=== PATIENT | male | born 1960 | race Caucasian/White ===

== ENCOUNTER 2023-01-11 12:35 | Inpatient (IN) | payer MEDICAID ==
[~2023-01-11] VITALS: Ht 167.6 cm; Wt 41.0 kg
[2023-01-11] MEDS ORDERED: ONDANSETRON HCL 4MG/2ML INJ IV STA (13:02)
[2023-01-11] MEDS ORDERED: SODIUM CHLORIDE 0.9% 1,000 ML IV ONE ×2 (13:15)
[2023-01-11] MEDS ORDERED: CEFEPIME 1,000 MG in DEXTROSE 5% WATER 50 ML IV SCH (13:30)
[2023-01-11] MEDS ORDERED: CEFEPIME 1GM PREMIX 50 ML IV NR (13:45)
[2023-01-11] MEDS ORDERED: CEFEPIME 1,000 MG in DEXTROSE 5% WATER 50 ML IV NR (13:45)
[2023-01-11 15:30] LABS: HEMATOCRIT. 43.5 % (42.0-52.0); MEAN CORPUSCULAR HEMOGLOBIN 27.9 pg (28.0-32.0); MEAN CORPUSCULAR VOLUME 80.7 fL (80.0-94.0); MEAN PLATELET VOLUME 7.8 fl (7.4-10.4); PLATELET 284 x1000/uL (130-400); RED BLOOD CELL COUNT 5.39 mill/uL (4.7-6.1); RED CELL DISTRIBUTION WIDTH 15.3 % (11.6-14.6)
[2023-01-11 15:36] LABS: INR 1.1; PARTIAL THROMBOPLASTIN TIME 30.2 sec (23.4-31.0); PROTHROMBIN TIME 11.9 sec (9.6-11.0)
[2023-01-11 15:37] LABS: CHLORIDE 100 mEq/L (98-107)
[2023-01-11] MEDS ORDERED: KCL 20MEQ/100ML PREMIX 100 ML IV ONE (16:00)
[2023-01-11] MEDS ORDERED: MAGNESIUM 2 G PREMIX 50 ML IV ONE (16:00)
[2023-01-11] MEDS ORDERED: POTASSIUM CHLORIDE 20MEQ TABLET SR PO ONE (16:00)
[2023-01-11] MEDS ORDERED: VANCOMYCIN 1G PREMIX 200 ML IV SCH (16:00)
[2023-01-11 16:22] LABS: PHOSPHORUS 3.7 mg/dL (2.5-4.9)
[2023-01-11 16:34] LABS: PLATELET ESTIMATE NORMAL
[2023-01-11] MEDS ORDERED: IOHEXOL-350 100 ML BOTTLE ONE (22:10)
[2023-01-12] MEDS ORDERED: ACETAMINOPHEN 325MG TABLET PO PRN ×2 (02:15)
[2023-01-12] MEDS ORDERED: IPRATROPIUM/ALBUTEROL 0.5-3(2.5)MG/3ML NEB HHN PRN (02:15)
[2023-01-12] MEDS ORDERED: MAGNESIUM/ALUMINUM HYDROXIDE/SIMETHICONE 30ML UDC PO PRN (02:15)
[2023-01-12] MEDS ORDERED: DOCUSATE SODIUM 100MG CAPSULE PO PRN (02:15)
[2023-01-12] MEDS ORDERED: GUAIFENESIN 200MG/10ML SUGAR FREE UDC PO PRN (02:15)
[2023-01-12] MEDS ORDERED: CLONIDINE 0.1MG TABLET PO PRN (02:15)
[2023-01-12] MEDS ORDERED: HYDROCODONE/ACETAMINOPHEN 5/325MG TABLET PO PRN (02:15)
[2023-01-12] MEDS ORDERED: NALOXONE HCL 0.4MG/ML VIAL IV PRN (02:45)
[2023-01-12 02:50] VITALS: BP 124/74
[2023-01-12] MEDS: SODIUM CHLORIDE 0.9% 1,000 ML IV SCH ×2 (03:36→15:35)
[2023-01-12 04:00] VITALS: BP 121/79
[2023-01-12] MEDS ORDERED: ONDANSETRON HCL 4MG/2ML INJ IV PRN (04:45)
[2023-01-12 04:53] LABS: CLARITY URINE CLOUDY (CLEAR); COLOR URINE YELLOW (YELLOW); KETONES URINE TRACE (NEGATIVE); LEUKOCYTE ESTERASE URINE NEGATIVE (NEGATIVE); NITRITE URINE NEGATIVE (NEGATIVE); OCCULT BLOOD URINE TRACE (NEGATIVE); PH URINE 5.5 (4.5-8.0); PROTEIN URINE 1+ (NEGATIVE); SPECIFIC GRAVITY URINE 1.047 (1.005-1.030); UROBILINOGEN URINE 0.2 E.U./dL (0.2-1.0)
[2023-01-12 05:12] LABS: *AMPHETAMINES SCREEN URINE NEGATIVE (NEGATIVE); *BARBITURATES SCREEN URINE NEGATIVE (NEGATIVE); *BENZODIAZEPINES SCREEN URINE NEGATIVE (NEGATIVE); *COCAINE SCREEN URINE NEGATIVE (NEGATIVE); CANNABINOID URINE SCREEN NEGATIVE (NEGATIVE); METHADONE URINE SCREEN NEGATIVE (NEGATIVE); OPIATES URINE SCREEN PRESUMTIVE POSITIVE (NEGATIVE); PHENCYCLIDINE URINE SCREEN NEGATIVE (NEGATIVE)
[2023-01-12] MEDS ORDERED: PIPERACILLIN/TAZOBACTAM 3.375 G in DEXTROSE 5% WATER 50 ML IV SCH (06:00)
[2023-01-12 07:58] LABS: HEPATITIS B SURFACE ANTIGEN NEGATIVE
[2023-01-12 08:00] VITALS: BP 126/77
[2023-01-12] MEDS: ENOXAPARIN 40MG/0.4ML SYR SUBCUT SCH (09:19)
[2023-01-12] MEDS ORDERED: POTASSIUM CHLORIDE 20MEQ/PACKET PO SCH (10:00)
[2023-01-12 11:04] LABS: HEMATOCRIT 41.6 % (42.0-52.0); HEMOGLOBIN 13.8 g/dL (14.0-18.0); MEAN CORPUSCULAR VOLUME 81.6 fL (80.0-94.0); PLATELET 225 x1000/uL (130-400); RED BLOOD CELL COUNT 5.09 mill/uL (4.7-6.1); RED CELL DISTRIBUTION WIDTH 15.2 % (11.6-14.6)
[2023-01-12 11:24] LABS: CHLORIDE 110 mEq/L (98-107)
[2023-01-12 11:32] LABS: PHOSPHORUS 2.5 mg/dL (2.5-4.9); TOTAL IRON BINDING CAPACITY 231 ug/dL (250-450)
[2023-01-12 12:00] VITALS: BP 115/71
[2023-01-12 12:14] LABS: FOLIC ACID (FOLATE) SERUM 17.5 ng/mL (>5.38)
[2023-01-12] MEDS ORDERED: POTASSIUM CHLORIDE 20MEQ TABLET SR PO NR (13:00)
[2023-01-12] MEDS ORDERED: POTASSIUM CHLORIDE INJ 40 MEQ in DEXT 5% WATER 250 ML IV NR (14:00)
[2023-01-12] MEDS ORDERED: VANCOMYCIN 750MG PREMIX 150 ML IV SCH ×2 (15:00)
[2023-01-12 16:00] VITALS: BP 120/75
[2023-01-12] MEDS: VANCOMYCIN 1G PREMIX 200 ML IV SCH (17:07)
[2023-01-12] MEDS: PIPERACILLIN/TAZOBACTAM 3.375 G in DEXTROSE 5% WATER 50 ML IV SCH (19:05)
[2023-01-12 20:00] VITALS: BP 117/72
[2023-01-12] MEDS ORDERED: FAMOTIDINE 20MG TABLET PO SCH (21:00)
[2023-01-13] VITALS: BP 111/77
[2023-01-13 00:42] LABS: CHLORIDE 113 mEq/L (98-107)
[2023-01-13] MEDS: VANCOMYCIN 1G PREMIX 200 ML IV SCH (02:04)
[2023-01-13 04:00] VITALS: BP 98/59
[2023-01-13 06:23] LABS: HEMOGLOBIN. 10.7 g/dL (14.0-18.0); MEAN PLATELET VOLUME 7.6 fl (7.4-10.4); PLATELET 167 x1000/uL (130-400); RED BLOOD CELL COUNT 3.98 mill/uL (4.7-6.1); RED CELL DISTRIBUTION WIDTH 15.2 % (11.6-14.6)
[2023-01-13] MEDS: PIPERACILLIN/TAZOBACTAM 3.375 G in DEXTROSE 5% WATER 50 ML IV SCH ×2 (06:46→16:16)
[2023-01-13] MEDS: SODIUM CHLORIDE 0.9% 1,000 ML IV SCH ×2 (06:49→17:45)
[2023-01-13 07:58] VITALS: BP 110/72
[2023-01-13] MEDS: ENOXAPARIN 40MG/0.4ML SYR SUBCUT SCH (08:24)
[2023-01-13 08:39] LABS: CHLORIDE 113 mEq/L (98-107)
[2023-01-13 08:54] LABS: HDL CHOLESTEROL 40 mg/dL (40-59)
[2023-01-13 08:55] LABS: LDL CHOLESTEROL 71 mg/dL (5-100); T4 FREE 1.32 ng/dL (0.76-1.46)
[2023-01-13 12:18] VITALS: BP 104/73
[2023-01-13] MEDS ORDERED: FERR-63 PO (13:56)
[2023-01-13] MEDS ORDERED: AMOX1TAB15 MT (13:56)
[2023-01-13] MEDS ORDERED: POTA-202 MT (13:56)
[2023-01-13] MEDS ORDERED: ONDA4TAB50 MT (13:56)
[2023-01-13] MEDS: FERROUS SULFATE 325MG TABLET PO SCH ×2 (14:30→17:45)
[2023-01-13 16:06] LABS: MEAN CORPUSCULAR HEMOGLOBIN 26.9 pg (28.0-32.0); PLATELET 155 x1000/uL (130-400); RED BLOOD CELL COUNT 4.46 mill/uL (4.7-6.1); RED CELL DISTRIBUTION WIDTH 15.2 % (11.6-14.6)
[2023-01-13 16:18] VITALS: BP 109/69
[2023-01-13] MEDS ORDERED: VANCOMYCIN 1G PREMIX 200 ML IV SCH (18:00)
[2023-01-13 18:10] LABS: PLATELET ESTIMATE NORMAL
[2023-01-13] MEDS ORDERED: GADOTERATE MEGLUMINE 5 MMOL/10 ML VIAL IV ONE (18:59)
[2023-01-13 20:19] VITALS: BP 121/80
== END 2023-01-13 20:40 | disposition home health service (06) | DRG 720 ==
LOC: ER 12:48 → MICUSO 20:03 → EDBEDREQ 20:12 → EDBEDREQTM 20:12 → 3WST 01-12 02:50
PROVIDERS: ADMIT Internal Medicine; ATTEND Internal Medicine
DX: A41.9 Sepsis, unspecified organism (principal); N17.0 Acute kidney failure with tubular necrosis; J98.51 Mediastinitis; E87.20 Acidosis, unspecified; K75.9 Inflammatory liver disease, unspecified; E83.41 Hypermagnesemia; K52.1 Toxic gastroenteritis and colitis; J98.2 Interstitial emphysema; C34.90 Malignant neoplasm of unspecified part of unspecified bronchus or lung; Z20.822 Contact with and (suspected) exposure to COVID-19; D64.9 Anemia, unspecified; E86.0 Dehydration; T45.1X5A Adverse effect of antineoplastic and immunosuppressive drugs, initial encounter; E83.52 Hypercalcemia; E87.6 Hypokalemia; Z68.30 Body mass index [BMI] 30.0-30.9, adult; Z87.891 Personal history of nicotine dependence; Y92.89 Other specified places as the place of occurrence of the external cause
CPT/HCPCS: 36415; 70553; 71045; 71275; 76604; 80048; 80053; 80061; 80202; 80305; 81003; 82330; 82570; 82607; 82746; 83036; 83540; 83550; 83605; 83735; 83880; 83935; 83970; 84100; 84145; 84300; 84439; 84443; 84484; 85025; 85027; 86705; 86709; 86803; 87340; 87420; 87426; 87804; 93005; 93306; 93970; 99291; A9577; C9803; J0692; J1650; J2405; J2543; J3370; J3475; J3480; J7030; J7060; Q9967